=== PATIENT | male | born 1985 | race Caucasian/White ===

== ENCOUNTER → 2019-02-11 13:51 | Outpatient (CLI) | payer OTHER, SELFPAY ==
--- NOTE | 2019-02-11 | DI.MRI.S_ITS ---
PROCEDURE: MR BRAIN (IAC) WWO CON INDICATIONS: AURAL VERTIGO TECHNIQUE: Noncontrast sagittal T1 spin echo, axial FLAIR, axial gradient echo, axial diffusion and ADC through the brain. Axial thin-slice 3D CISS, coronal TruFISP, axial T1 spin echo with fat saturation through the internal auditory canals. After the administration of contrast, thin slice axial and coronal T1 spin echo with fat saturation through the internal auditory canals, and axial T1 spin echo with fat saturation through the brain. COMPARISON: None. FINDINGS: Image quality: Excellent. Cerebellopontine angles: No cerebellopontine angle masses. Inner ear structures appear normally formed. No suspicious enhancement in the internal auditory canal or along the course of the 7th cranial nerve. CSF spaces: Ventricles are normal in size and shape. No extra-axial fluid collections. Basal cisterns are patent. Brain: No intracranial bleeds or mass effects. Barron-white matter interface is intact. No abnormal intracranial enhancement. Diffusion weighted images demonstrate no acute ischemic insults. Brainstem appears normal. Normal intravascular flow voids are present. Skull and face: Calvarial marrow signal is normal. Orbits appear normal. Sinuses: Sinuses and mastoids are clear. IMPRESSION: 1. No evidence of vestibular schwannoma. 2. No acute intracranial disease process. 3. No abnormal intra-cranial mass or suspicious postcontrast enhancement. 4. No abnormal intracranial signal. Dictated by: Katelyn Lopez MD, PhD on 02/11/2019 at 17:04 Approved by: Katelyn Lopez MD, PhD on 02/11/2019 at 17:11
== END ==
PROVIDERS: Visit Provider Otolaryngology
DX: H81.319 Aural vertigo, unspecified ear (principal)
CPT/HCPCS: 70553; A9579

== ENCOUNTER 2020-02-23 17:56 | Emergency (ER) | payer OTHER, SELFPAY ==
[2020-02-23 18:15] VITALS: BP 149/84; PULSE 65; RESP 16; TEMP 36.8; O2SAT 98; BMI 24.4
--- NOTE | 2020-02-23 19:27 | ED_ITS ---
HPI - Dizziness <JESSICA Babcock - Last Filed: 02/24/20 00:54> General Chief Complaint: Dizziness Stated Complaint: Vertigo and Hearing Loss In Both Ears, Vomiting Time Seen by Provider: 02/23/20 19:09 Source: patient Mode of arrival: Ambulatory Limitations: no limitations History of Present Illness HPI Narrative: This is a 34-year-old male, nonsmoker, who has a history of left ear tinnitus, vertigo since 2011 and frequent migraine headache presents to ED with right ear decreased hearing last 1 month presented to ED with increasing humming and feels like underwater and attempted pop his ear yesterday at 8:00 p.m. and has been having vertigo symptoms with room spinning sensation and nausea and vomiting since 10:00 p.m. last night. Patient reports today's vertigo symptoms are similar to previous vertigo goes but his symptoms lasting much longer. He reports usually his symptoms last about 2 hours. He attempted to eat and drink but he could not keep food down today. Patient denies fever, chills or unusual rashes. Patient reports frontal headache and he takes daily topiramate that has been prescribed by his neurologist at [facility]. Patient also sees Dr. Singh who is ENT specialist at [facility]. Patient reports he ran out of meclizine which has been prescribed by Dr. Singh. Patient denies vision change, speech difficulty, dysphagia, weakness, recent cold symptoms. The patient reports currently getting study done whether vertigo symptoms is related to Meiniere disease vs. TBI which is coordinated by his primary care physician at [facility] with specialty providers. Related Data Previous Rx's Medication Instructions Recorded meclizine 25 mg PO TID PRN #10 tab 02/23/20 Allergies Allergy/AdvReac Type Severity Reaction Status Date / Time No Known Drug Allergies Allergy Verified 02/23/20 19:54 Review of Systems <JESSICA Babcock - Last Filed: 02/24/20 00:54> Review of Systems Narrative: General: Denies fever, chills, fatigue, malaise, sweats. HEENT: See HPI Respiratory: Denies dyspnea, cough, wheezing, hemoptysis, sputum. Cardiovascular: Denies chest pain, palpitations, orthopnea, edema. Gastrointestinal: See HPI : Denies dysuria, frequency, incontinence, hematuria, urinary retention. Musculoskeletal: Denies weakness, joint pain or bony pain. Skin: Denies rash, skin lesions, or other. Neurologic: Denies weakness, (+) headache, numbness, change in speech, confusion, seizures, incoordination. Psychiatric: No concerning psychosocial issues. 12-point review of systems is negative except for those stated above. Patient History <JESSICA Babcock - Last Filed: 02/24/20 00:54> Medical History Migraine headache (Acute) TBI (traumatic brain injury) (Acute) Tinnitus (Acute) Vertigo (Acute) Social History Smoking Status: Never smoker Smoking Status: Never smoker alcohol intake frequency: holidays/special occasions only Substance Use Type: does not use Exam <JESSICA Babcock - Last Filed: 02/24/20 00:54> Narrative Exam Narrative: GEN: Alert, oriented x 3, well appearing and nourished, and in no acute distress. Head: Normal cephalic, atraumatic. No scalp or temporal tenderness, palpable mass or rash. EYES: Pupils are equal, round, and reactive to light and accommodation. Extrao cular muscles are intact bilaterally. Positive for nystagmus. There is no subconjunctival hemorrhage, exudate and sclera non-icteric. ENT: Bilateral auditory canals and tympanic membranes clear. Hearing grossly intact. Nose without bleeding, purulent discharge, septal hematoma or deviation. Turbinate without erythema or swelling. Mucous membrane moist, no mucosal lesion. Throat without erythema, tonsillar hypertrophy or exudate. Uvula in midline, airway patent. Neck: Trachea in midline. No JVD, non-tender without lymphadenopathy. No masses or thyroid megaly. Supple, non-tender and no meningeal signs. CARDIAC: Normal regular rate and rhythm without murmurs, gallops, or rubs. No chest wall tenderness. No peripheral edema, cyanosis or pallor. Capillary refill is less than 2 seconds. No carotid bruits. RESPIRATORY: Lungs are cleat to auscultate bilaterally. No cough, wheezes, rales, or rhonchi. No stridor, respiratory distress, increase work of breathing, or accessary muscle used. ABD: Abdomen soft, nontender and non-distended. No guarding or rebound tenderness to palpate. Bowel sounds are normal in all 4 quadrants. There is no palpable masses or organomegaly. EXT: Full painless ROM of all extremities with no loss of sensation, strength, effusion or edema. SKIN: Warm, dry, normal color for patient. No erythema, lesions or rash. BACK: Nontender without deformity or crepitance. No flank tenderness. NEUROLOGICAL: Alert and oriented to place, time and person. No facial droops, dysphasia. CN II-XII intact. Strength and sensation symmetric and intact throughout. Cerebellar testing normal. PSYCHIATRIC: Good judgement and reason, without hallucinations, abnormal affect or abnormal behaviors during the examination. Patient is not suicidal. Initial Vital Signs Initial Vital Signs: Vital Signs Temperature 98.3 F 02/23/20 18:15 Pulse Rate 65 02/23/20 18:15 Respiratory Rate 16 02/23/20 18:15 Blood Pressure 149/84 H 02/23/20 18:15 Pulse Oximetry 98 02/23/20 18:15 <Feliz Avila DO - Last Filed: 02/24/20 07:23> Initial Vital Signs Initial Vital Signs: Vital Signs Temperature 98.3 F 02/23/20 18:15 Pulse Rate 65 02/23/20 18:15 Respiratory Rate 16 02/23/20 18:15 Blood Pressure 149/84 H 02/23/20 18:15 Pulse Oximetry 98 02/23/20 18:15 Scores <JESSICA Babcock - Last Filed: 02/24/20 00:54> GCS Edison coma scale eye opening: Spontaneous Silvestre coma scale verbal response: Orientated Silvestre coma scale motor response: Obey commands Silvestre coma scale total score: 15 NIH Stroke Scale Level of Conciousness: Alert, keenly responsive Ask month/age: Answers both questions correctly. Open/close eyes, close hand: Performs both tasks correctly Best gaze horizontal: Normal Visual mcarthur: No visual loss Facial palsy: Normal symetrical movement Left arm drift: No drift for full 10 sec Right arm drift: No drift for full 10 sec Left leg drift: No drift for full 10 sec Right leg drift: No drift for full 10 sec Limb ataxia: Absent Sensory on face/arms/legs: Normal, no sensory loss Best language: No aphasia, normal Dysarthria: Normal Extinction or inattention: No abnormality Total NIH Stroke scale score: 0 Course <Solis Castillo-JESSICA Schmidt - Last Filed: 02/24/20 00:54> Orders Ordered: Discontinued Medications Diphenhydramine HCl (Benadryl) 25 mg IV NOW ONE Stop: 02/23/20 19:24 Last Admin: 02/23/20 19:56 Dose: 25 mg Documented by: BTONER Sodium Chloride (Normal Saline 0.9%) 1,000 mls @ 1,000 mls/hr IV BOLUS ONE Stop: 02/23/20 20:25 Last Infusion: 02/23/20 21:46 Dose: 0 mls/hr Documented by: Admin: 02/23/20 19:56 Dose: 1,000 mls/hr Documented by: BTONER Ketorolac Tromethamine (Toradol) 15 mg IV NOW ONE Stop: 02/23/20 19:24 Last Admin: 02/23/20 19:55 Dose: 15 mg Documented by: BTONER Meclizine HCl (Antivert) 25 mg PO NOW ONE Stop: 02/23/20 19:24 Last Admin: 02/23/20 19:56 Dose: 25 mg Documented by: BTONER Metoclopramide HCl (Reglan) 10 mg IV NOW ONE Stop: 02/23/20 19:24 Last Admin: 02/23/20 19:55 Dose: 10 mg Documented by: BTONER Ondansetron HCl (Zofran Odt Prepack) 1 bottle MISC SEEINSTR ONE Stop: 02/23/20 20:51 Last Admin: 02/23/20 21:41 Dose: 1 bottle Documented by: BTONER Reevaluation(s) Reevaluation #1: Reports vertigo, nausea and headache improving. Ice chips provided for po challenge. Time: 20:40 Vital Signs Vital signs: Vital Signs - 8 hr 02/23/20 18:15 02/23/20 20:03 02/23/20 21:42 Temperature 98.3 F Pulse Rate 65 50 L 57 L Respiratory Rate 16 14 Blood Pressure 149/84 H 128/71 128/70 Pulse Oximetry 98 100 100 <Feliz Avila DO - Last Filed: 02/24/20 07:23> Orders Ordered: Discontinued Medications Diphenhydramine HCl (Benadryl) 25 mg IV NOW ONE Stop: 02/23/20 19:24 Last Admin: 02/23/20 19:56 Dose: 25 mg Documented by: CHAKAONER Sodium Chloride (Normal Saline 0.9%) 1,000 mls @ 1,000 mls/hr IV BOLUS ONE Stop: 02/23/20 20:25 Last Infusion: 02/23/20 21:46 Dose: 0 mls/hr Documented by: Admin: 02/23/20 19:56 Dose: 1,000 mls/hr Documented by: CHAKAONER Ketorolac Tromethamine (Toradol) 15 mg IV NOW ONE Stop: 02/23/20 19:24 Last Admin: 02/23/20 19:55 Dose: 15 mg Documented by: CHAKAONEAnjum Meclizine HCl (Antivert) 25 mg PO NOW ONE Stop: 02/23/20 19:24 Last Admin: 02/23/20 19:56 Dose: 25 mg Documented by: CHAKAONER Metoclopramide HCl (Reglan) 10 mg IV NOW ONE Stop: 02/23/20 19:24 Last Admin: 02/23/20 19:55 Dose: 10 mg Documented by: CHAKAONER Ondansetron HCl (Zofran Odt Prepack) 1 bottle MISC SEEINSTR ONE Stop: 02/23/20 20:51 Last Admin: 02/23/20 21:41 Dose: 1 bottle Documented by: BTONER Vital Signs Vital signs: Vital Signs - 8 hr 02/23/20 18:15 02/23/20 20:03 02/23/20 21:42 Temperature 98.3 F Pulse Rate 65 50 L 57 L Respiratory Rate 16 14 Blood Pressure 149/84 H 128/71 128/70 Pulse Oximetry 98 100 100 MDM - Dizziness <JESSICA Babcock - Last Filed: 02/24/20 00:54> Differential Diagnosis Differential diagnosis: Likely benign paroxysmal positional vertigo, orthostatic hypotension and other (Vertigo, migraine headache,) Medical Records Attestation: I reviewed the patient's medical records. Lab Data Attestation: I reviewed the patient's lab results. Result diagrams: 02/23/20 19:50 02/23/20 19:50 Labs: Lab Results 02/23/20 02/23/20 Range/Units 19:50 19:50 WBC 12.7 H (4.5-11.0) X10^3/uL RBC 4.85 (4.5-5.9) X10^6/uL Hgb 15.2 (13.5-17.5) g/dL Hct 43.3 (41-53) % MCV 89.3 (80-100) fL MCH 31.3 (26-34) PG MCHC 35.0 (30-36) % RDW 11.8 (11.6-14.8) % Plt Count 257 (150-400) X10^3/uL Neut % (Auto) 78.2 H (50-75) % Lymph % (Auto) 14.9 L (25-40) % Douglas % (Auto) 5.7 (3-14) % Eos % (Auto) 0.3 L (2-4) % Baso % (Auto) 0.9 (0-2) % Neut # (Auto) 9900 H (2662-2988) /uL Lymph # (Auto) 1900 (9883-5545) /uL Douglas # (Auto) 700 (0-900) /uL Eos # (Auto) 0 (0-450) /uL Baso # (Auto) 100 (0-100) /uL Sodium 138 (137-145) mmol/L Potassium 3.9 (3.4-5.1) mmol/L Chloride 103 (98-107) mmol/L Carbon Dioxide 24 (22-32) mmol/L BUN 17 (9-20) mg/dL Creatinine 1.02 (0.66-1.25) mg/dL Estimated GFR > 60.0 (>60) mL/min BUN/Creatinine Ratio 16.7 (6-22) Glucose 101 H (70-100) mg/dL Calcium 10.2 (8.4-10.2) mg/dL Total Bilirubin 1.5 H (0.2-1.3) mg/dL AST 40 (17-59) IU/L ALT 46 (<50) IU/L Alkaline Phosphatase 54 (38-126) U/L Total Protein 8.8 H (6.3-8.2) g/dL Albumin 5.1 H (3.5-5.0) g/dL Globulin 3.7 (1.7-4.1) g/dL Albumin/Globulin Ratio 1.4 (1.0-2.8) MDM Narrative Medical decision making narrative: This is a 34-year-old male who presents to ED with vertigo, room spinning with nausea and vomiting, symptoms which started after he attempted to pop his right ear and this time the vertigo is lasting longer than his usual with related new right ear humming noise and fullness which has been going on for last 1 month. Patient reports he ran out of meclizine. Patient also reports He has chronic migraine headache and takes Topamax daily for this. Patient reports mild to moderate frontal headache where he has chronic migraine headache. There is no focal neurologic deficits and neuro exam is unremarkable. Ear exam was unremarkable. Since patient had similar vertigo and migraine headaches in the past, deferred imaging test. Mild leukocytosis of 12.7 with neutrophil # of 9900 with unremarkable chemistry test results. No other source of infection appreciated. This may due to patient's GI symptoms. Patient was medicated with IV normal saline hydration, IV benadryl, Regland and Toradol to treat headache and Meclizine 25mg. Patient reports his symptoms much improved after these treatments. He was able to tolerate ice chips without vomiting. Patient discharged to home with marissa Tovar and transmitted meclizine to [facility] pharmacy. Patient advised to rest with head of bed elevated or in recliner for next couple of days to prevent recurring vertigo symptoms. Return precautions were discussed with patient and advised to follow up with primary care physician, his specialty care doctor's with neurologist and ENT as needed. Patient verbalized the understanding and agreement with the treatment plan. <Feliz Avila, DO - Last Filed: 02/24/20 07:23> Lab Data Labs: Lab Results 02/23/20 02/23/20 Range/Units 19:50 19:50 WBC 12.7 H (4.5-11.0) X10^3/uL RBC 4.85 (4.5-5.9) X10^6/uL Hgb 15.2 (13.5-17.5) g/dL Hct 43.3 (41-53) % MCV 89.3 (80-100) fL MCH 31.3 (26-34) PG MCHC 35.0 (30-36) % RDW 11.8 (11.6-14.8) % Plt Count 257 (150-400) X10^3/uL Neut % (Auto) 78.2 H (50-75) % Lymph % (Auto) 14.9 L (25-40) % Douglas % (Auto) 5.7 (3-14) % Eos % (Auto) 0.3 L (2-4) % Baso % (Auto) 0.9 (0-2) % Neut # (Auto) 9900 H (3732-1611) /uL Lymph # (Auto) 1900 (5449-8029) /uL Douglas # (Auto) 700 (0-900) /uL Eos # (Auto) 0 (0-450) /uL Baso # (Auto) 100 (0-100) /uL Sodium 138 (137-145) mmol/L Potassium 3.9 (3.4-5.1) mmol/L Chloride 103 (98-107) mmol/L Carbon Dioxide 24 (22-32) mmol/L BUN 17 (9-20) mg/dL Creatinine 1.02 (0.66-1.25) mg/dL Estimated GFR > 60.0 (>60) mL/min BUN/Creatinine Ratio 16.7 (6-22) Glucose 101 H (70-100) mg/dL Calcium 10.2 (8.4-10.2) mg/dL Total Bilirubin 1.5 H (0.2-1.3) mg/dL AST 40 (17-59) IU/L ALT 46 (<50) IU/L Alkaline Phosphatase 54 (38-126) U/L Total Protein 8.8 H (6.3-8.2) g/dL Albumin 5.1 H (3.5-5.0) g/dL Globulin 3.7 (1.7-4.1) g/dL Albumin/Globulin Ratio 1.4 (1.0-2.8) Discharge Plan Departure Patient Disposition: Home Clinical Impression: Vertigo Migraine Qualifiers: Migraine type: unspecified Status migrainosus presence: without status migrainosus Intractability: not intractable Qualified Code(s): G43.909 - Migraine, unspecified, not intractable, without status migrainosus Tinnitus Qualifiers: Laterality: unspecified laterality Qualified Code(s): H93.19 - Tinnitus, unspecified ear Discharge Date/Time: 02/23/20 21:46 Instructions: DI for Migraine, DI for Vertigo Activity Restrictions/Additional Instructions: You have been diagnosed with vertigo, tinnitus and migraine. You were treated with IV fluid, IV medications-Toradol, Benadryl, Reglan and meclizine which improved her symptoms.. What to do: *Take your medications as directed. Please take meclizine as needed for vertigo symptoms this has been transmitted to [facility]. You can take Zofran for nausea as needed that has been provided to you from ED. *Follow up with your primary care provider in 2-3 days, call for an appointment. Let them know you were seen in the ED and that we asked you to be seen in follow up. *Return to ED if you have any new, worsening, or concerning symptoms, such as [facial droops, weakness to 1 side of your body, vision change, worsening headache, unable to tolerate fluids, chest pain, or any acute concerns]. Prescriptions: New meclizine 25 mg tablet 25 mg PO TID PRN (Reason: vertigo) Qty: 10 RF: 0 Referrals: Allen Locke [Primary Care Provider] -
[2020-02-23] MEDS: KETOROLAC 60 MG/2 ML VIAL 15 MG IV (19:55)
[2020-02-23] MEDS: METOCLOPRAMIDE 10 MG/2 ML INJ IV (19:55)
[2020-02-23 19:56] LABS: Add Manual Diff / Slide Review NO; Basophils Absolute Auto 100 /uL (0-100); Basophils Percent Auto 0.9 % (0-2); Eosinophils Absolute Auto 0 /uL (0-450); Eosinophils Percent Auto 0.3 % (2-4); Hematocrit 43.3 % (41-53); Hemoglobin 15.2 g/dL (13.5-17.5); Lymphocytes Absolute Auto 1900 /uL (1100-4500); Lymphocytes Percent Auto 14.9 % (25-40); Mean Corpuscular Hemoglobin 31.3 PG (26-34); Mean Corpuscular Volume 89.3 fL (80-100); Monocytes Absolute Auto 700 /uL (0-900); Monocytes Percent Auto 5.7 % (3-14); Neutrophils Absolute Auto 9900 /uL (1500-7000); Neutrophils Percent Auto 78.2 % (50-75); Platelet Count 257 X10^3/uL (150-400); Red Blood Cell Count 4.85 X10^6/uL (4.5-5.9); Red Cell Distribution Width 11.8 % (11.6-14.8); White Blood Cell Count 12.7 X10^3/uL (4.5-11.0)
[2020-02-23] MEDS: SODIUM CHLORIDE 0.9% 1,000 ML 1000 ML IV (19:56)
[2020-02-23] MEDS: diphenhydrAMINE 50 MG/ML VIAL 25 MG IV (19:56)
[2020-02-23] MEDS: MECLIZINE HCL 12.5 MG TABLET 25 MG PO (19:56)
[2020-02-23 20:03] VITALS: BP 128/71; PULSE 50; O2SAT 100
[2020-02-23 20:07] LABS: Alanine Aminotransferase 46 IU/L (<50); Albumin 5.1 g/dL (3.5-5.0); Albumin Globulin Ratio 1.4 (1.0-2.8); Alkaline Phosphatase 54 U/L (38-126); Aspartate Aminotransferase 40 IU/L (17-59); BUN Creatinine Ratio 16.7 (6-22); Bilirubin Total 1.5 mg/dL (0.2-1.3); Blood Urea Nitrogen 17 mg/dL (9-20); Calcium 10.2 mg/dL (8.4-10.2); Carbon Dioxide 24 mmol/L (22-32); Chloride 103 mmol/L (98-107); Estimated Glomerular Filt Rate > 60.0 mL/min (>60); Globulin 3.7 g/dL (1.7-4.1); Glucose 101 mg/dL (70-100); HEMOLYSIS < 15 (0-50); Potassium 3.9 mmol/L (3.4-5.1); Sodium 138 mmol/L (137-145); Total Protein 8.8 g/dL (6.3-8.2)
[2020-02-23] MEDS: ONDANSETRON 4 MG ODT PREPACK 1 BOTTLE MISC (21:41)
[2020-02-23 21:42] VITALS: BP 128/70; PULSE 57; RESP 14; O2SAT 100
== END 2020-02-23 21:46 | disposition home or self-care (01) ==
PROVIDERS: Emergency Provider Nurse Practitioner Family
DX: G43.909 Migraine, unspecified, not intractable, without status migrainosus (principal); H93.19 Tinnitus, unspecified ear; R42 Dizziness and giddiness; R11.2 Nausea with vomiting, unspecified
CPT/HCPCS: 36415; 80053; 85025; 96361; 96374; 96375; 99284; J1200; J1885; J2765